=== PATIENT | female | born 1970 | race Caucasian/White ===

== ENCOUNTER → 2016-08-23 | Outpatient (CLI) | payer OTHER ==
[~2016-08-23] MED LIST: BUPR300T43 PO; CLON1TAB3 PO; FLUO20CA20 PO; GDN60 PO; IBUP600T44 PO; LAMO200T38 PO; METH-307 PO; PRLSR20 PO
--- NOTE | 2016-08-24 06:30 | PAP/PSG TECHNICIAN REPORT ---
[facility] Cinder Worker Polysomnogram Report Study name: None Report date: 08/24/2016 Study date: 08/23/2016 Referring Physician: Trav DIAZ M.D. Name: EVELYN FERNANDO ADOLPH Interpreting Physician: Jackie Diaz M.D. Date of : 1970 Cinder Worker: Carolin Vega RPSGT. Sex: Female Age: 46 Study Type: PSG PAP Weight: 221 lbs 14.5 in Height: 46 years, Height 5' 4" Neck Circum: BMI: 37.93 Medications: PROAIR HFA, ADVAIR DISKUS 250-50 MCG/DOSE, LURASIDONE 40 MG, HYDROCORTISONE 2.5% CREAM, AMPHETAMINE-DEXTROAMPHETAMINE 30 MG, CLONAZEPAM 1 MG, PANTOPRAZOLE 40 MG Patient History 46 yr-old female here for a CPAP update study. She was found to be positive for TERESA via a home sleep study. She was since then set up at home with an auto CPAP machine. She is back to assess her pressure. She is wearing an AirFit F10 full face mask size small from [employer]. The test was started on room air and 4 CMH2O. ETCO2 testing was not utilized during this study. Room 3 Parameters Monitored NPSG: E1-M2, E2-M1, Fp1-M2, Fp2-M1, F3-M2, F4-M2, F4-M1, C3-M2, C4-M2, C4-M1, O1-M2, O2-M2, O2-M1, T3-M2, T4-M1, P3-M2, P4-M1, CHIN1, CHIN2, HR, EKG, Legs, PFLOW, SNOR, FLOW, CFLOW, Tidal Volume, THOR, ABDO, SpO2, PLTH, CPRESS, ETCO2 Wave, ETCO2, pH Sleep Architecture Sleep Stages Time at Lights Off 9:50:10 PM STAGES Time (min.) TST (%) Time at Lights On 5:50:10 AM Wake 64.0 -- Total Recording Time (TRT) 480.00 min. N1 50.5 12 Total Sleep Period (TSP) 440.5 min. N2 261.0 63 Total Sleep Time (TST) 416.0min. N3 30.0 7 Awake Time 64.0 min. REM 74.5 18 Wake after Sleep Onset 24.5 min. Sleep Efficiency (SE) 87 % Sleep Onset Latency (SHASHI) 39.5 min. Number of Stage 1 Shifts None Awakenings 22 Stage Changes 97 Number of REM periods 4 REM 74.5 18 REM Latency 137.0 min. NREM 341.5 82 Body Position Analysis Supine Right Left Side Prone Vertical Total Sleep Time (min.) 21.9 0.0 0.0 0.00 455.6 0.0 Total Sleep Time (%) 0% 0% 0% 0 100% N/A% Total Sleep Time REM (min.) 0.0 0.0 0.0 None 74.5 0.0 Total Sleep Time NREM (min.) 0.0 0.0 0.0 None 341.5 0.0 Intermittent Wake (min.) 21.9 0.0 2.5 None 39.6 0.0 Total Sleep Period (%) 0% None None None None None Arousals Myoclonus (PLM) * Events Count Index Events Count Index Spontaneous 46 7 Events Awake (PLMW) 33 30.9 Respiratory 8 1.6 Events Asleep w/ Arousal (PLMA) 5 0.7 PLM 5 1 Events Asleep w/o Arousal (PLMS) 49 7.1 Snoring 7 1 Total Asleep 54 7.8 Total 66 10 Total 87 11 Respiratory Analysis * CA OA MA CH H RERA Total Count 0 1 0 0 17 1 18 Index 0.0 0.1 0.0 0 2.5 0 2.7 Mean Duration 0.0 15.5 0.0 0.00 15.9 16.1 15.9 Longest Duration 0.0 15.5 0.0 0.00 0.0 16.1 19.5 Respiratory Event Summary Total Supine ~Supine Right Left Prone REM NREM Apneas Count 1 N/A 1 N/A N/A 1 0 1 Index 0.1 N/A 0 N/A N/A 0 0 0 Hypopneas (4% Desat) Count 17 N/A 17 N/A N/A 17 1 16 Index 2.5 N/A 2 N/A N/A 2.5 0.8 2.8 Apneas & All Hypopneas Count 18 N/A 18 N/A N/A 18 1 17 Index 2.6 N/A 3 N/A N/A 3 0.8 3.0 Respiratory Events (Silk Opener+All Hyp+RERA) Count 18 N/A 19 N/A N/A 19 1 17 Index 2.7 N/A 3 N/A N/A 2.7 0.8 3.2 Respiratory Related Arousal Count 8 N/A 11 N/A N/A 11 0 11 Index 1.6 N/A 2 N/A N/A 2 0 2 Snoring Analysis Supine Right Left Prone REM NREM Total Snore duration 3.7 min Snores count N/A N/A N/A 148 16 132 148 Snore mean duration 1.5 Sec Snores index N/A N/A N/A 21 12.9 23.2 21.3 TST with snoring (%) 0.9% Desaturation Event Summary: Minimum %SpO2 Event Count Mean/Min/Max Duration(sec.) Desaturation Index % Time In Bed > 90 37 27.1 / 6.3 / 58.3 4.7 98.0 86 - 90 0 N/A 0.0 2.0 81 - 85 0 N/A 0.0 0.0 76 - 80 0 N/A 0.0 0.0 71 - 75 0 N/A 0.0 0.0 66 - 70 0 N/A 0.0 0.0 61 - 65 0 N/A 0.0 0.0 56 - 60 0 N/A 0.0 0.0 51 - 55 0 N/A 0.0 0.0 < 50 0 N/A 0.0 0.0 Total REM NREM Awake <50% 0.0 min. 0.0 min. 0.0 min. 0.0 min. 51 - 60% 0.0 min. 0.0 min. 0.0 min. 0.0 min. 61 - 70% 0.0 min. 0.0 min. 0.0 min. 0.0 min. 71 - 80% 0.0 min. 0.0 min. 0.0 min. 0.0 min. 81 - 90% 9.6 min. 0.0 min. 5.4 min. 4.2 min. 91 - 100% 469.6 min. 74.5 min. 336.1 min. 59.1 min. Average 93 94 94 93 Minimum SpO2 87 92 87 88 Desaturation Event Index 4.6 0.8 4.2 11.3 # Desat. Events below 89% 4 N/A 3 1 Time(%) with Saturation below 89% 0.1 0.0 0.0 0.0 Time(min.) with Saturation below 89% 0.4 0.0 0.2 0.1 Time (mins) REM (mins) NREM (mins) % of TST SpO2 Below 90% 14 N/A N14 0.2 SpO2 Below 88% 1 0 0 0 Heart Rate Analysis Min (bpm) Max (bpm) Average (bpm) Awake 58 97 75 NREM 52 88 67 REM 55 73 64 Overall 52 88 66 Supplemental O2 Values Minimum O2 level: None Value Start Time End Time Cinder Worker Comments Ms. Waddell slept in the right, left, and prone positions. No cardiac arrhythmias or PLMs noted. No bruxism noted. CPAP was initiated at +4 CMH2O and up-titrated to a level of +8 CMH2O, Cflex 2 which nearly eliminated all respiratory events and snoring. An AirFit F10 full face mask size small from [employer] was used during titration She did not wake up to use the restroom during the night. Ms. Waddell stated that she slept about the same as usual. The final report will be interpreted and signed by a sleep physician. The completed physician report will then be placed in the patient medical record. Therapy Event: Therapy (cm H20) 4 5 7 8 Total Time at Pressure (min.) 59.5 23.8 217.3 179.4 TST at Pressure (min.) 12.0 22.3 209.3 172.4 # Periods 1 1 1 1 Sleep Onset (min.) 39.5 0.0 0.0 0.0 REM Onset (min.) N/A N/A 93.3 22.4 Sleep Efficiency % 20 93 96 96 Wakefulness (%) 79.9 6.3 3.7 3.9 Wakefulness (min.) 47.5 1.5 8.0 7.0 NREM 1 (%) 20.1 23.3 7.9 8.9 NREM 1 (min.) 12.0 5.5 17.1 15.9 NREM 2 (%) 0.0 70.4 71.2 49.9 NREM 2 (min.) 0.0 16.7 154.8 89.5 NREM 3 (%) 0.0 0.0 13.8 0.0 NREM 3 (min.) 0.0 0.0 30.0 0.0 REM (%) 0.0 0.0 3.5 37.3 REM (min.) 0.0 0.0 7.5 67.0 # Arousals 12 7 18 29 Arousal Index 60.2 18.8 5.2 10.1 # Snore 3 27 88 30 Snore Index 15.1 72.7 25.2 10.4 AHI 20.1 18.8 1.7 0.3 AHI Supine N/A N/A N/A N/A AHI Non-Supine 20.1 18.8 1.7 0.3 NREM AHI 20.1 18.8 1.8 0.0 REM AHI N/A N/A 0.0 0.9 RDI 25.1 18.8 1.7 0.3 # Obstructive 0 0 1 0 # Central Ap 0 0 0 0 # Mixed 0 0 0 0 # Hypopneas 4 7 5 1 RERAS 1 0 0 0 Total Respiratory Events 5 7 6 1 Time Below SpO2 89.00% (min.) 0.2 0.0 0.0 0.0 Mean NREM SpO2 (%) 92 92 94 94 Mean REM SpO2 (%) N/A N/A 93 94 Mean Sleep SpO2 (%) 92 92 94 94 Min NREM SpO2 (%) 87 88 91 90 Min REM SpO2 (%) N/A N/A 92 92 Position Supine (min.) 0.0 0.0 0.0 0.0 Position Non-supine (min.) 12.0 22.3 209.3 172.4 LM Index Sleep 20.1 21.5 6.3 7.0 LM Index NREM 20.1 21.5 6.5 5.7 LM Index REM N/A N/A 0.0 9.0 Mean Heart Rate (bpm) 77 75 68 62 Min Heart Rate (bpm) 70 65 57 52
--- NOTE | 2016-09-02 16:04 | POLYSOMNOGRAPH REPORT ---
CPAP TITRATION STUDY REFERRING PHYSICIAN: Jackie Morris MD BRIDGE IRONWORKER: Carolin Vega. This patient was sent to the sleep lab for a CPAP titration study. She was found to have obstructive sleep apnea versus a home sleep test, has been using auto titrating CPAP at home. She is now wearing an AirFit F10, small, full face mask for her in-lab sleep testing. [place] sleepiness scale score on the evening of this study is not recorded. BMI is 37.93. Following the technical and digital specifications of the [employer] (AASM) a standard diagnostic polysomnogram was performed monitoring EEG, EOG, EMG (chin and leg deviations), oxygen saturation, body position, digital video, respiratory effort and airflow. The sleep Stage and event scoring was based on the AASM Manual for the Scoring of Sleep and Associated Events 2007 edition. Apneas are defined as a drop in the peak thermal sensor excursion by >90% of baseline for at least 10 seconds. Hypopneas were scored using the 4% oxygen desaturation rule (4A-[employer]ic[employer]) and a decrease in the nasal pressure excursions by >30% of baseline for at least 10 seconds. Respiratory effort-related arousal (RERA's) is defined as a sequence of breaths lasting at least 10 seconds characterized by increasing respiratory effort or flattening of the nasal pressure waveform leading to an arousal from sleep when the sequence of breaths does not meet criteria for an apnea or hypopnea. Apnea Hypopnea index (AHI) is defined as the number of apneas and hypopneas occurring in an hour of sleep. Respiratory disturbance index (RDI) is defined as the number of apneas, hypopneas, and RERA's occurring in an hour of sleep. Ms. Urban total sleep period time was 440.5 minutes. Total sleep time was 416 minutes. Sleep efficiency was 87%. Latency to sleep onset was 39.5 minutes. Wake after sleep onset was 24.5 minutes. Total non-REM sleep time was 341.5 minutes. She spent 12% of that time in N1 sleep, 63% in N2 sleep and 7% in N3 sleep. REM latency was 137 minutes. Total REM sleep time was 74.5 minutes or 18% of total sleep time. There were 66 cortical arousals from sleep. 46 of these arousals were spontaneous, 8 were due to respiratory events, 5 due to periodic limb movements of sleep and 7 were due to snoring. There were 54 periodic limb movements noted on this test. Limb movement index was 7.8. Limb movement with arousal index was 0.7. There were no central, 1 obstructive and no mixed apneas on this titration. There were 17 hypopneas and 1 RERA. Apnea-hypopnea index was normal at 2.6. 148 snoring events were recorded. Total sleep time with snoring was 0.9%. Mean saturation was 93% with only transient desaturations less than 89% for 0.4 minutes of recorded time. There was no cardiac ectopy noted on this study. Ms. Waddell's heart rate ranged from a low of 52 beats per minute to a high of 88 beats per minute during sleep. As stated above, this was a CPAP titration study. The patient was titrated from a CPAP pressure of 4 to a CPAP pressure of 8 over the course of the night. Increasing pressures were needed to prevent apneas, hypopneas and arousals. She slept prone the entire night. She was observed on a pressure of 8 for 172.4 minutes of sleep time. There were 67 minutes of prone REM sleep on this pressure. AHI and RDI on this pressure were both 0.3 and there were no desaturations less than 89%. IMPRESSION AND PLAN: Successful CPAP titration study in this patient with known obstructive sleep apnea. She appears to do well when sleeping prone at a pressure of 8. A download from her machine should be reviewed in 1 month both to check compliance as well as AHI once her machine is set to this pressure. This appears to resolve any hypoxemia.
== END | disposition home or self-care (01) ==
LOC: C.NEUR 21:00
PROVIDERS: ATTEND Family Medicine
DX: G47.33 Obstructive sleep apnea (adult) (pediatric) (principal)